=== PATIENT | male | born 1965 | race Caucasian/White ===

== ENCOUNTER 2024-08-12 15:05 | Inpatient (IN) | payer OTHER ==
[~2024-08-12] VITALS: Ht 177.8 cm; Wt 140.0 kg
--- NOTE | 2024-08-12 15:26 | ED.PDOC ---
History of Present Illness HPI Comments 58-year-old male brought in by EMS presents with a chief complaint of generalized weakness, nausea, vomiting, irregular heart rate and slurred speech with mild altered mental status. Per EMS, patient was driving to [place] for medical evaluation from multiple providers when he had a sudden onset of generalized weakness, became nauseated, and had one emesis episode. Patient was found to be in A-Fib RVR and takes Xarelto normally for it, but has not been non-compliant with his medications recently. Patient states additionally that his pacemaker has now function in his only operating on one side. Patient was supposed to have that pacemaker replaced next week. Patient was given 4mg Zofr an and 500mL of NS. Patient is alert and oriented, but states that he feels weak and continues to displays signs of slurred speech. No other symptoms or modifying factors present at this time. Chief Complaint: Dizziness Time Seen by MD: 15:18 Reviewed Notes: Nurses Notes, Chemical Lab Supervisor Notes, Medications, Allergies Allergies: Coded Allergies: Penicillins (Verified Allergy, Unknown, 08/12/24) Information Source: Patient, Emergency Med Personnel Mode of Arrival: EMS Severity: Moderate Timing: Hours Duration: Since onset Prehospital treatment: IVF (500mL ), Treatment (4mg Zofran) Past Medical History PAST MEDICAL HISTORY: AFIB Surgical History: Pacemaker Family History Family History: Reviewed,noncontributory to illness Social History Smoker: Non-Smoker Alcohol: Denies ETOH Use Drugs: Denies Drug Use Lives In: Home Constitutional: reports: weakness; denies: chills, diaphoresis, fatigue, fever, malaise, sweats, others EENTM: denies: blurred vision, double vision, ear bleeding, ear discharge, ear drainage, ear pain, ear ringing, eye pain, eye redness, hearing loss, mouth pain, mouth swelling, nasal discharge, nose bleeding, nose congestion, nose pain, photophobia, tearing, throat pain, throat swelling, voice changes, others Respiratory: denies: cough, hemoptysis, orthopnea, SOB at rest, shortness of breath, SOB with excertion, stridor, wheezing, others Cardiovascular: reports: irregular heart beat; denies: chest pain, dizzy spells, diaphoresis, Dyspnea on exertion, edema, left arm pain, lightheadedness, palpitations, PND, syncope, others Gastrointestinal: reports: nausea, vomiting; denies: abdomen distended, abdominal pain, blood streaked bowels, constipated, diarrhea, dysphagia, difficulty swallowing, hematemesis, melena, poor appetite, poor fluid intake, rectal bleeding, rectal pain, others Genitourinary: denies: burning, dysuria, flank pain, frequency, hematuria, incontinence, penile discharge, penile sore, pain, testicle pain, testicle swelling, urgency, others Neurological: reports: speech problems; denies: dizziness, fainting, headache, left sided numbness, left sided weakness, numbness, paresthesia, pre-existing deficit, right sided numbness, right sided weakness, seizure, tingling, tremors, weakness, others Musculoskeletal: denies: back pain, gout, joint pain, joint swelling, muscle pain, muscle stiffness, neck pain, others Integumetry: denies: bruises, change in color, change in hair/nails, dryness, laceration, lesions, lumps, rash, wounds, others Allergic/Immunocompromised: denies: Difficulty Healing, Frequent Infections, Hives, Itching, others Hematologic/Lymphatic: denies: anemia, blood clots, easy bleeding, easy bruising, swollen glands, others Endocrine: denies: excessive hunger, excessive sweating, excessive thirst, excessive urination, flushing, intolerance to cold, intolerance to heat, unexplained weight gain, unexplained weight loss, others Psychiatric: denies: anxiety, bipolar disorder, depression, hopeless, panic disorder, schizophrenia, sleepless, suicidal, others All Other Systems: Reviewed and Negative Physical Exam Exam Comments Patient was BEFAST negative at time of evaluation. General Appearance: Moderate Distress, Obese HEENT: Head (Cranial exam was unremarkable. No signs of trauma. No skull depressions or deformities.), Normal ENT Inspection, Pharynx Normal, TMs Normal Neck: Full Range of Motion, Non-Tender, Normal, Normal Inspection Respiratory: Chest Non-Tender, Lungs Clear, No Accessory Muscle Use, No Respiratory Distress, Normal Breath Sounds Cardiovascular: No Edema, No JVD, No Murmur, No Gallop, Normal Peripheral Pulses, Tachycardia, Other (A-Fib RVR) Breast Exam: Deferred Gastrointestinal: No Organomegaly, Non Tender, No Pulsatile Mass, Normal Bowel Sounds, Soft Genitalia: Deferred Pelvic: Deferred Rectal: Deferred Extremities: No calf tenderness, Normal capillary refill, Normal inspection, Normal range of motion, Non-tender, No pedal edema Musculoskeletal : Apperance: Normal Neurologic: Alert, No Motor Deficits, Normal Affect, No Sensory Deficits, Other (LETHARGIC) Cerebellar Function: Normal Reflexes: Normal Skin: Dry, Normal Color, Warm Lymphatic: No Adenopathy Was a procedure done? Was a procedure done?: No Differential Dx Considerations may include: Acute coronary syndrome, AFib with RVR, encephalopathy, sepsis, electrolyte abnormality X-Ray, Labs, Meds, VS Vital Signs Date Time Temp Pulse Resp B/P (MAP) Pulse Ox O2 Delivery O2 Flow Rate FiO2 08/12/24 22:52 123 08/12/24 20:00 98.3 123 14 101/50 (67) 96 98.3 08/12/24 19:30 122 26 96 Room Air* 0 21 08/12/24 19:04 116 119/58 08/12/24 19:00 116 14 119/58 (78) 96 08/12/24 18:20 122 22 122/69 (86) 96 08/12/24 18:04 133 125/66 08/12/24 18:00 133 26 96 Room Air* 0 21 08/12/24 17:50 98.4 133 26 125/66 (85) 96 98.4 08/12/24 15:33 131 08/12/24 15:19 97.6 130 18 119/82 (94) 97 Lab Test 08/12/24 20:00 08/12/24 18:28 08/12/24 16:32 08/12/24 15:37 Range/Units Urine Color Yellow Yellow Urine Clarity Clear Clear Urine pH 6.0 5.0-9.0 Urine Specific [place] 1.028 1.001-1.035 Urine Protein Trace H Negative Urine Ketones Trace Negative Urine Blood Negative Negative /uL Urine Nitrite Negative Negative Urine Bilirubin Negative Negative Urine Urobilinogen 2 H Negative mg/dL Urine Leukocyte Esterase Negative Negative /uL Urine RBC 9 0 - 3 /hpf Urine Microscopic WBC 1 0-3 /HPF Urine Squamous Epithelial Cells None seen <5 /hpf Urine Bacteria None seen None Seen /hpf Urine Mucus Few None Seen Urine Glucose Normal Normal mg/dL Troponin I High Sensitivity 19 18 17 </=54 ng/L White Blood Count 11.5 H 4.4-10.8 10^3/uL Red Blood Count 4.79 4.5-5.90 10^6/uL Hemoglobin 15.2 13.5-17.5 g/dL Hematocrit 46.4 41.0-53.0 % Mean Corpuscular Volume 97.0 80.0-100.0 fL Mean Corpuscular Hemoglobin 31.7 28.0-32.0 pg Mean Corpuscular Hemoglobin Concent 32.7 32.0-36.0 g/dL Red Cell Distribution Width 15.7 H 11.8-14.3 % Platelet Count 370 140-450 10^3/uL Mean Platelet Volume 8.1 6.9-10.8 fL Neutrophils (%) (Auto) 81.5 H 37.0-80.0 % Lymphocytes (%) (Auto) 8.6 L 10.0-50.0 % Monocytes (%) (Auto) 9.0 0.0-12.0 % Eosinophils (%) (Auto) 0.3 0.0-7.0 % Basophils (%) (Auto) 0.6 0.0-2.0 % Neutrophils # (Auto) 9.4 H 1.6-8.6 10 ^3/uL Lymphocytes # (Auto) 1.0 0.4-5.4 10 ^3/uL Monocytes # (Auto) 1.0 0-1.3 10 ^3/uL Eosinophils # (Auto) 0 0-0.8 10 ^3/uL Basophils # (Auto) 0.1 0-0.2 10 ^3/uL Nucleated Red Blood Cells 0.1 % Prothrombin Time 11.2 9.3-11.8 sec Prothrombin Time INR 1.06 0.9-1.15 Activated Partial Thromboplast Time 25.9 24.5-34.5 SEC D-Dimer, Quantitative 0.49 0.0-0.49 mg/L FEU Sodium Level 135 L 136-145 mmol/L Potassium Level 3.9 3.5-5.1 mmol/L Chloride Level 97 L 98-107 mmol/L Carbon Dioxide Level 28 20-31 mmol/L Anion Gap 10 5-15 Blood Urea Nitrogen 18 9-23 mg/dL Creatinine 1.02 0.700-1.30 mg/dL Glomerular Filtration Rate Calc 84 >90 mL/min BUN/Creatinine Ratio 17.6 10.0-20.0 Serum Glucose 157 H 74-106 mg/dL Calcium Level 9.2 8.7-10.4 mg/dL Magnesium Level 2.1 1.6-2.6 mg/dL Total Bilirubin 1.4 H 0.2-1.0 mg/dL Aspartate Amino Transferase (AST) 27 13-40 U/L Alanine Aminotransferase (ALT) 40 7-40 U/L Alkaline Phosphatase 67 46-116 U/L B-Type Natriuretic Peptide 396.26 0-100 pg/mL Total Protein 6.7 5.7-8.2 g/dL Albumin 4.3 3.2-4.8 g/dL Current Medications Medications (Trade) Dose Ordered Sig/Jaspal Route Start Time Stop Time Status Last Admin Metoprolol Tartrate (Lopressor) 5 mg ONCE ONCE IV 08/12/24 15:45 08/12/24 15:46 DC 08/12/24 18:04 X-Ray, Labs, Meds, VS Comment All studies performed the ED were evaluated by me personally. Serum laboratories revealed a mild CHF exacerbation. No sepsis appreciated. Imaging studies confirmed a cardiomegaly with some pulmonary congestion noted. Patient's EKGs continued to display atrial fibrillation with a rate of one 31- 123. Multiple ventricular premature complexes noted with incomplete left bundle-branch block and borderline prolonged QT interval. Discussed the patient's concerns with Cardiology mid-level Renu. She advised utilizing metoprolol and admitting for cardiac consultation tomorrow. Patient will be admitted for cardiac evaluation in the morning as well as neuro evaluation to assess his improving speech concerns. Patient's cardiac score is six. Time of 1ST Reevaluation: 23:06 Reevaluation 1ST: Improved Consultation: PCP, Cardiology, Neurology Patient Education/Counseling: Diagnosis, Treatment, Prognosis Family Education/Counseling: Diagnosis, Treatment, Prognosis Departure 1 Departure Time of Disposition: 23:10 Impression: Primary Impression: Atrial fibrillation with RVR Additional Impression: Encephalopathy Disposition: 09 ADMITTED INPATIENT Condition: Stable Discharged With: Self Critical Care Note Critical Care Time?: No Stability Stability form required: No I personally scribed for YVETTE LEMOS PAC ([email or web address]) on 08/12/24 at 15:26. Electronically submitted by Cisco Gerard ([email or web address]). YVETTE LEMOS PAC Aug 12, 2024 15:26
--- NOTE | 2024-08-12 15:35 | ECG ---
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
--- NOTE | 2024-08-12 16:00 | DVH ---
EXAM: XR Chest, 1 View CLINICAL INDICATION: Shortness of breath TECHNIQUE: Frontal view of the chest. COMPARISON: None FINDINGS: LUNGS AND PLEURAL SPACES: See below. HEART: Cardiomegaly with mild congestion. MEDIASTINUM: Unremarkable. Normal mediastinal contour. BONES/JOINTS: Unremarkable. No acute fracture. TUBES, LINES AND DEVICES: Left-sided cardiac pacemaker. OTHER FINDINGS: . .. IMPRESSION: Cardiomegaly with mild congestion.
--- NOTE | 2024-08-12 16:15 | DVH ---
EXAM: CT Head Without Intravenous Contrast CLINICAL INDICATION: Altered mental status TECHNIQUE: Axial computed tomography images of the head/brain without intravenous contrast. This CT exam was performed using one or more of the following dose reduction techniques: automated exposure control, adjustment of the mA and/or kV according to patient size, and/or use of iterative reconstru ction technique. CONTRAST: RADIATION DOSE: CTDIvol = 62.79 mGy, DLP = 1111.61 mGy-cm COMPARISON: None FINDINGS: BRAIN AND EXTRA-AXIAL SPACES: No acute intracranial hemorrhage, midline shift or mass effect. If sy mptoms persist, further evaluation with MRI is recommended. The cerebral and cerebellar sulci are mi ldly prominent consistent with mild brain atrophy. Mild areas of decreased attenuation in the deep c erebral white matter are consistent with mild small vessel ischemic/degenerative changes. BONES/JOINTS: Unremarkable. No acute fracture. SOFT TISSUES: Unremarkable. SINUSES: Unremarkable as visualized. No acute sinusitis. MASTOID AIR CELLS: Unremarkable as visualized. No mastoid effusion. OTHER FINDINGS: . ESSION: 1. No acute intracranial hemorrhage, midline shift or mass effect. If symptoms persist, further eval uation with MRI is recommended. 2. Mild small vessel ischemic/degenerative changes.
[2024-08-12 16:20] LABS: Basophils # (auto) 0.1 10 ^3/uL (0-0.2); Basophils % (auto) 0.6 % (0.0-2.0); Eosinophils # (auto) 0 10 ^3/uL (0-0.8); Eosinophils % (auto) 0.3 % (0.0-7.0); Hematocrit 46.4 % (41.0-53.0); Hemoglobin 15.2 g/dL (13.5-17.5); Lymphocytes % (auto) 8.6 % (10.0-50.0); Mean Corpuscular Hemoglobin 31.7 pg (28.0-32.0); Mean Corpuscular Hgb Conc. 32.7 g/dL (32.0-36.0); Neutrophils # (auto) 9.4 10 ^3/uL (1.6-8.6); Neutrophils % (auto) 81.5 % (37.0-80.0); Nucleated Red Blood Cells % 0.1 %; Platelet Count (auto) 370 10^3/uL (140-450); Red Blood Cells 4.79 10^6/uL (4.5-5.90); Red Cell Distribution Width 15.7 % (11.8-14.3); White Blood Cell 11.5 10^3/uL (4.4-10.8)
[2024-08-12 16:35] LABS: Albumin 4.3 g/dL (3.2-4.8); Alkaline Phosphatase 67 U/L (46-116); Anion Gap 10 (5-15); Aspartate Aminotransferase 27 U/L (13-40); BUN/Creatinine Ratio 17.6 (10.0-20.0); Blood Urea Nitrogen 18 mg/dL (9-23); Calcium 9.2 mg/dL (8.7-10.4); Carbon Dioxide 28 mmol/L (20-31); Magnesium 2.1 mg/dL (1.6-2.6); Potassium 3.9 mmol/L (3.5-5.1)
[2024-08-12 16:36] LABS: Total Protein 6.7 g/dL (5.7-8.2)
[2024-08-12 16:38] LABS: INR 1.06 (0.9-1.15); Partial Thromboplastin Time 25.9 SEC (24.5-34.5); Prothrombin Time 11.2 sec (9.3-11.8)
[2024-08-12 16:42] LABS: Alanine Aminotransferase 40 U/L (7-40); Bilirubin, Total 1.4 mg/dL (0.2-1.0); Chloride 97 mmol/L (98-107); Glucose 157 mg/dL (74-106); Sodium 135 mmol/L (136-145)
[2024-08-12 18:00] VITALS: PULSE 133; RESP 26; O2SAT 96
[2024-08-12] MEDS: METOPROLOL TARTRATE 1MG/1ML-5ML VIAL IV ONE (18:04)
[2024-08-12 19:30] VITALS: PULSE 122; RESP 26; O2SAT 96
[2024-08-12 20:26] LABS: Urine Bacteria None Seen /hpf (None Seen)
[2024-08-12 20:38] LABS: Urine Blood Negative /uL (Negative); Urine Clarity Clear (Clear); Urine Color Yellow (Yellow); Urine Mucus FEW (None Seen); Urine Protein, UAD TRACE (Negative); Urine Specific Gravity 1.028 (1.001-1.035); Urine Squamous Epithelial Cell None Seen /hpf (<5); Urine Urobilinogen 2 mg/dL (Negative); Urine WBC 1 /HPF (0-3)
[2024-08-12] MEDS: LORazepam 2MG/ML-1ML VIAL IV ONE (23:22)
[2024-08-13] MEDS ORDERED: ENOXAPARIN SOD 80 MG/0.8ML SYRINGE SC SCH (01:15)
[2024-08-13] MEDS: SODIUM CHLORIDE 0.9% 1,000 ML IV ONE (01:30)
[2024-08-13] MEDS ORDERED: VANCOMYCIN PER PHARMACY 0 MG IV SCH (02:00)
[2024-08-13] MEDS ORDERED: VANCOMYCIN 1GM/250ML KIT 250 ML IV SCH (02:30)
[2024-08-13 02:47] LABS: Erythrocyte Sedimentation Rate 19 mm/hr (0-20)
[2024-08-13 02:57] LABS: COVID19 ANTIGEN SOFIA FIA NEGATIVE (NEGATIVE); Rapid Influenza A Negative (Negative); Rapid Influenza B Negative (Negative)
[2024-08-13 03:07] LABS: Cannabinoid Screen, Urine Pos (NEGATIVE)
[2024-08-13 03:09] LABS: Amphetamine Screen, Urine Pos (NEGATIVE); Barbiturate Scree,Urine Neg (NEGATIVE); Benzodiazephine Screen, Urine Neg (NEGATIVE); Cocaine Screen, Urine Neg (NEGATIVE); Opiate Scree,Urine Neg (NEGATIVE); Phencyclidine Screen, Urine Neg (NEGATIVE)
--- NOTE | 2024-08-13 04:30 | DVHHPRES ---
History of Present Illness Resident Creating Document: LAYLA HERNANDEZ RESIDENT Reason for Visit: Afib with RVR History of Present Illness A 58y old male with PMHx HFrEF, atrial fibrillation and previous stroke who came to the ED brought by the EMS, patient was driving to [place] when he started to feel weak and started to have slurred speech. Patient stated that the slurred speech happened at 5 pm, right now patient doesn't have slurred sppech or stated any neurogical deficit. Pt also stated feeling nauseas and have an episode of vomiting. Pt stated that he has an ICD and need to be changed, he denies any shocks. He also stated that he is having afib for more than a year and he is not taking his blood thinner Xarelto PMHx: HFrEF sp ICD , atrial fibrillation and previous stroke Home meds: Xarelto 20 mg tramadol diltiazem metolazone Entresto 50 carvedilol 6.25 losartan spironolactone furosemide 40 pantoprazole UDS came positive for amphetamines Review of Systems Constitutional: Yes: Malaise; No: Fever, Chills, Sweats, Weakness, Other Eyes: No: Pain, Vision change, Conjunctivae inflammation, Eyelid inflammation, Other, Redness ENT: No: Ear pain, Ear discharge, Nose pain, Nose discharge, Nose congestion, Mouth pain, Mouth swelling, Throat pain, Throat swelling, Other Respiratory: No: Cough, Dry, Shortness of breath, SOB with excertion, Wheezing, Hemoptysis, Pleuritic Pain, Sputum, Wheezing, Other Cardiovascular: No: Chest Pain, Palpitations, Orthopnea, Paroxysmal Noc. Dyspnea, Edema, Lt Headedness, Other Gastrointestinal: No: Nausea, Vomiting, Abdominal Pain, Diarrhea, Constipation, Melena, Hematochezia, Other Genitourinary: No Dysuria, No Frequency, No Incontinence, No Hematuria, No Retention, No Other Musculoskeletal: No: other, neck pain, shoulder pain, arm pain, back pain, hand pain, leg pain, foot pain Skin: No: Rash, Lesions, Jaundice, Bruising, Other Neurological: Weakness; No: Numbness, Incoordination, Change in speech, Confusion, Seizures, Other Allergies: Coded Allergies: Penicillins (Verified Allergy, Unknown, 08/12/24) Medications Current Medications Medications Dose Ordered Sig/Jaspal Route Start Time Stop Time Status Last Admin Dose Admin Enoxaparin Sodium 80 mg BID SC 08/13/24 01:15 UNV Ceftriaxone Sodium 50 ml @ 100 mls/hr DAILY IV 08/13/24 10:00 Vancomycin HCl 0 ml @ 0 mls/hr UD IV 08/13/24 02:00 UNV Vancomycin HCl 250 ml @ 125 mls/hr Q2H IV 08/13/24 05:00 08/13/24 08:59 Exam Vital Signs Vital Signs Date Time Temp Pulse Resp B/P (MAP) Pulse Ox O2 Delivery O2 Flow Rate FiO2 08/13/24 00:00 97.8 125 21 99/72 (81) 92 97.8 08/12/24 19:30 Room Air* 0 21 General Appearance: Alert, Oriented X3 HEENT: Other (pupils are miotic but reactive ) Respiratory: Clear to auscultation Cardiovascular: Other (tachycardic ) Abdominal: Normal bowel sounds, Soft Extremities: No clubbing, No cyanosis Skin: No rashes, No breakdown Neuro: Normal gait, Normal speech, Strength at 5/5 X4 ext, Normal tone, Sensation intact, Cranial nerves 3-12 NL, Reflexes 2+ Psych/Mental Status: Mental status NL, Mood NL, Other Labs/Xrays Labs Test 08/13/24 01:28 08/13/24 01:23 08/12/24 20:00 08/12/24 18:28 Range/Units Erythrocyte Sedimentation Rate 19 0-20 mm/hr C-Reactive Protein High Sensitivity 5.64 H <1.0 mg/dL Thyroid Stimulating Hormone (TSH) 1.91 0.55-4.78 uIU/mL Influenza Type A Antigen Negative Negative Influenza Type B Antigen Negative Negative SARS-CoV-2 Antigen (Rapid) Negative NEGATIVE Urine Color Yellow Yellow Urine Clarity Clear Clear Urine pH 6.0 5.0-9.0 Urine Specific [place] 1.028 1.001-1.035 Urine Protein Trace H Negative Urine Ketones Trace Negative Urine Blood Negative Negative /uL Urine Nitrite Negative Negative Urine Bilirubin Negative Negative Urine Urobilinogen 2 H Negative mg/dL Urine Leukocyte Esterase Negative Negative /uL Urine RBC 9 0 - 3 /hpf Urine Microscopic WBC 1 0-3 /HPF Urine Squamous Epithelial Cells None seen <5 /hpf Urine Bacteria None seen None Seen /hpf Urine Mucus Few None Seen Urine Glucose Normal Normal mg/dL Urine Opiates Screen Neg NEGATIVE Urine Fentanyl Screen Neg NEGATIVE Urine Barbiturates Screen Neg NEGATIVE Urine Phencyclidine Screen Neg NEGATIVE Urine Amphetamines Screen Pos NEGATIVE Urine Benzodiazepines Screen Neg NEGATIVE Urine Cocaine Screen Neg NEGATIVE Urine Cannabinoids Screen Pos NEGATIVE Troponin I High Sensitivity 19 </=54 ng/L Test 08/12/24 15:37 Range/Units White Blood Count 11.5 H 4.4-10.8 10^3/uL Red Blood Count 4.79 4.5-5.90 10^6/uL Hemoglobin 15.2 13.5-17.5 g/dL Hematocrit 46.4 41.0-53.0 % Mean Corpuscular Volume 97.0 80.0-100.0 fL Mean Corpuscular Hemoglobin 31.7 28.0-32.0 pg Mean Corpuscular Hemoglobin Concent 32.7 32.0-36.0 g/dL Red Cell Distribution Width 15.7 H 11.8-14.3 % Platelet Count 370 140-450 10^3/uL Mean Platelet Volume 8.1 6.9-10.8 fL Neutrophils (%) (Auto) 81.5 H 37.0-80.0 % Lymphocytes (%) (Auto) 8.6 L 10.0-50.0 % Monocytes (%) (Auto) 9.0 0.0-12.0 % Eosinophils (%) (Auto) 0.3 0.0-7.0 % Basophils (%) (Auto) 0.6 0.0-2.0 % Neutrophils # (Auto) 9.4 H 1.6-8.6 10 ^3/uL Lymphocytes # (Auto) 1.0 0.4-5.4 10 ^3/uL Monocytes # (Auto) 1.0 0-1.3 10 ^3/uL Eosinophils # (Auto) 0 0-0.8 10 ^3/uL Basophils # (Auto) 0.1 0-0.2 10 ^3/uL Nucleated Red Blood Cells 0.1 % Prothrombin Time 11.2 9.3-11.8 sec Prothrombin Time INR 1.06 0.9-1.15 Activated Partial Thromboplast Time 25.9 24.5-34.5 SEC D-Dimer, Quantitative 0.49 0.0-0.49 mg/L FEU Sodium Level 135 L 136-145 mmol/L Potassium Level 3.9 3.5-5.1 mmol/L Chloride Level 97 L 98-107 mmol/L Carbon Dioxide Level 28 20-31 mmol/L Anion Gap 10 5-15 Blood Urea Nitrogen 18 9-23 mg/dL Creatinine 1.02 0.700-1.30 mg/dL Glomerular Filtration Rate Calc 84 >90 mL/min BUN/Creatinine Ratio 17.6 10.0-20.0 Serum Glucose 157 H 74-106 mg/dL Calcium Level 9.2 8.7-10.4 mg/dL Magnesium Level 2.1 1.6-2.6 mg/dL Total Bilirubin 1.4 H 0.2-1.0 mg/dL Aspartate Amino Transferase (AST) 27 13-40 U/L Alanine Aminotransferase (ALT) 40 7-40 U/L Alkaline Phosphatase 67 46-116 U/L B-Type Natriuretic Peptide 396.26 0-100 pg/mL Total Protein 6.7 5.7-8.2 g/dL Albumin 4.3 3.2-4.8 g/dL Assessment/Plan Assessment/Plan #Sepsis? vs early cardiogenic shock #Hypotension MAP >65 mmHg #Acute on chronic HF (Possible reduced EF) #Chronic atrial fibrillation now RVR - Persistent? #TIA? #Rule out stroke #Amphetamine use #CBD use EKG showed HR 131 atrial fibrillation but now HR 115 BPs are in the 90/60[address] CT scan: 1. No acute intracranial hemorrhage, midline shift or mass effect. 2. Mild small vessel ischemic/degenerative changes. NIHSS score 2 points xray: pulmonary congestion and cardiomegaly Admit Telemetry NS 1LT bolus Hold on BB due to possible sepsis vs early cardiogenic shock Start ceftriaxone + vancomycin (CRP elevated) Pancultures ordered UDS came positive for amphetamines and CBD Enoxaparin 80 mg BID Neurology and cardiology consult ordered ICD interrogation Hold on GDMT due to hypotension ECHO ordered MRI ordered to rule out stroke Start aspirin and atorvastatin due to the possibility of stroke and previous stroke Case discussed with Dr Riddle Time spent on care 23 min Plan discussed with: Patient, Other (rn) My Orders Orders - LAYLA HERNANDEZ RESIDENT Procedure Category Date Status Time Admit ADMIT 08/13/24 Transmitted 00:57 Brain Head Wo Contrast MRI 08/13/24 Logged 00:57 Blood Culture STEFANY 08/13/24 In Process 00:57 Echo 2d Mode Cardiac US 08/13/24 Logged DOP 01:04 * Cardiology Consult CONS 08/13/24 Transmitted 01:04 Enoxaparin Sodium PHA 08/13/24 Pending (Lovenox) 01:15 Ceftriaxone 1gm/50ml PHA 08/13/24 In Process D5w (Rocephin) 10:00 Vancomycin Per PHA 08/13/24 Pending Pharmacy 02:00 Urine Bacterial STEFANY 08/13/24 In Process Culture 01:46 Stool Occult Blood LAB 08/13/24 Logged 01:46 Stool Bacterial STEFANY 08/13/24 Logged Culture 01:46 Stool Wbc LAB 08/13/24 Logged 01:46 Respiratory Culture STEFANY 08/13/24 Logged W/ Gs 01:46 Docket Specialist To Assess ORDERS 08/13/24 Transmitted Pacemaker 01:48 Vancomycin 1gm/250ml PHA 08/13/24 In Process Kit 05:00 Date of Service: Aug 13, 2024 Billing Provider: JAMES RIDDLE MD Common Visit Codes: [id number] INP/OBS CARE (HIGH) LAYLA HERNANDEZ RESIDENT Aug 13, 2024 04:30 JAMES RIDDLE MD Aug 15, 2024 10:13
[2024-08-13 05:00] VITALS: BP 130/48; PULSE 125; RESP 19; TEMP 97.8; O2SAT 92
[2024-08-13] MEDS ORDERED: METF-370 PO (05:06)
[2024-08-13] MEDS ORDERED: RIVA20TA PO (05:06)
[2024-08-13] MEDS ORDERED: CARV6.2551 PO (05:06)
[2024-08-13] MEDS ORDERED: SPIR25TA8 PO (05:07)
[2024-08-13] MEDS ORDERED: LOSA-533 PO (05:07)
[2024-08-13] MEDS ORDERED: FURO1TAB31 PO (05:07)
[2024-08-13 05:08] VITALS: O2SAT 97
[2024-08-13] MEDS ORDERED: METO25TA5 PO (05:08)
[2024-08-13] MEDS: cefTRIAXone 1GM/50ML D5W 50 ML IV SCH (05:27)
[2024-08-13] MEDS: ASPirin 81 mg TAB PO SCH (05:28)
[2024-08-13] MEDS: VANCOMYCIN 1GM/250ML KIT 250 ML IV SCH (05:28)
[2024-08-13] MEDS: ATORVASTATIN 20 MG TAB PO SCH (05:28)
[2024-08-13 08:00] VITALS: PULSE 115; RESP 18; O2SAT 93
[2024-08-13 09:00] VITALS: BP 102/72; PULSE 59; RESP 18; TEMP 97.7; O2SAT 93
--- NOTE | 2024-08-13 09:45 | DVHINCON2 ---
ROSE MARY RILEY AGACNP 08/13/24 0945: Date Seen: Aug 13, 2024 Referring Physician Aniceto Reason for Consultation CHF, A fib RVR History of Present Illness 58-year-old male with PMH for HTN, HLD, atrial fibrillation on Xarelto, CHF, presence of implantable defibrillator, presents to the hospital with dizziness and slurred speech. 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 Upon evaluation in the ER patient noted to be in AFib with RVR. Patient endorses noncompliance with Xarelto for approximately 1-[address] head showed no acute pathology with mild ischemic/degenerative changes. Troponins trending negative x3. TSH normal. BNP 396. UDS found to be positive for amphetamines and cannabinoids, patient denies any recent use of amphetamines though does endorse marijuana use recently. EKG reviewed and shows atrial fibrillation with rapid ventricular response at 131 beats per minute, IRBBB. Past Medical History CHF Atrial Fibrillation HTN HLD AICD Past Surgical History AICD Family History Denies pertinent family cardiac history Allergies: Coded Allergies: Penicillins (Verified Allergy, Unknown, 08/12/24) Home Meds Reported Medications Metoprolol Tartrate (Metoprolol Tartrate) 25 Mg Tab, 50 MG PO, TAB 08/13/24 Losartan Potassium (Losartan Potassium) 25 Mg Tab, 1 TAB PO DAILY, #90 TAB 1 Refill 08/13/24 Spironolactone (Spironolactone) 25 Mg Tab, 1 TAB PO DAILY, #90 TAB 1 Refill 08/13/24 Furosemide (Lasix) 40 Mg Tab, 40 MG PO, TAB 08/13/24 Metformin Hydrochloride (Metformin Hcl) 500 Mg Tab, 1 TAB PO BID, #60 TAB 3 Refills 08/13/24 Carvedilol (Carvedilol) 6.25 Mg Tab, 1 TAB PO BID, #180 TAB 1 Refill 08/13/24 Rivaroxaban (XARELTO) 20 Mg Tab, 1 TAB PO DAILY, #30 TAB 11 Refills 08/13/24 Current Medications Current Medications Medications (Trade) Dose Ordered Sig/Jaspal Route PRN Reason Start Time Stop Time Status Last Admin Enoxaparin Sodium (Lovenox) 80 mg BID SC 08/13/24 01:15 UNV Ceftriaxone Sodium 50 ml @ 100 mls/hr DAILY IV 08/13/24 10:00 08/13/24 04:43 DC Vancomycin HCl 0 ml @ 0 mls/hr UD IV 08/13/24 02:00 UNV Vancomycin HCl 250 ml @ 125 mls/hr Q2H IV 08/13/24 02:30 08/13/24 04:04 DC Vancomycin HCl 250 ml @ 125 mls/hr Q2H IV 08/13/24 05:00 08/13/24 08:59 DC 08/13/24 08:42 Ceftriaxone Sodium 50 ml @ 100 mls/hr DAILY IV 08/13/24 04:45 08/13/24 08:43 Aspirin 81 mg DAILY PO 08/13/24 04:45 08/13/24 08:42 Atorvastatin Calcium (Lipitor) 80 mg HS PO 08/13/24 04:45 08/13/24 05:28 Enoxaparin Sodium (Lovenox) 80 mg DAILY SC 08/13/24 10:00 UNV Furosemide (Lasix Injection) 20 mg DAILY IV 08/13/24 10:00 UNV Metoprolol Tartrate (Lopressor Tablet) 25 mg BID PO 08/13/24 10:00 UNV Review of Systems Constitutional: No: Fever, Chills, Sweats, Weakness, Malaise, Other Eyes: No: Pain, Vision change, Conjunctivae inflammation, Eyelid inflammation, Other, Redness ENT: No: Ear pain, Ear discharge, Nose pain, Nose discharge, Nose congestion, Mouth pain, Mouth swelling, Throat pain, Throat swelling, Other Respiratory: No: Cough, Dry, Shortness of breath, SOB with exertion, Wheezing, Hemoptysis, Pleuritic Pain, Sputum, Wheezing, Other Cardiovascular: ; No: Chest Pain Palpitations, Orthopnea, Paroxysmal Noc. Dyspnea, , Lt Headedness, Other positive: Edema Gastrointestinal: No: Nausea, Vomiting, Abdominal Pain, Diarrhea, Constipation, Melena, Hematochezia, Other Genitourinary: No Dysuria, No Frequency, No Incontinence, No Hematuria, No Retention, No Other Musculoskeletal: neck pain; No: other, shoulder pain, arm pain, back pain, hand pain, leg pain, foot pain Skin: No: Rash, Lesions, Jaundice, Bruising, Other Neurological: Other (, headache.); No: Weakness, Numbness, Incoordination, , Confusion, Seizures positive: Change in speech, Dizziness Vital Signs Vital Signs Date Time Temp Pulse Resp B/P (MAP) Pulse Ox O2 Delivery O2 Flow Rate FiO2 08/13/24 05:08 97 Room Air* 0 21 08/13/24 05:00 97.8 125 19 130/48 (75) 97.8 Physical Exam General appearance: Patient is well-developed, well-nourished, in no acute distress. HEENT: Exam shows: Normocephalic, atraumatic, PERRLA, EOMI Neck: Supple, no bruits Chest: Equal chest excursion bilaterally. Breath sounds normal-no rales or w heezes. Heart: Rhythm: Irregular rate; no murmur or gallop Abdomen: Exam shows: Soft, nontender, nondistended Musculoskeletal: No clubbing, no cyanosis, + lower extremity edema Dermatology: Skin warm, moist. BLE reddness Neurological: Exam shows: Alert and oriented x4, abnormal speech Available prior records, labs, EKG, rhythm strips reviewed and interpreted Labs/Diagnostic Data Labs Test 08/13/24 01:28 08/13/24 01:23 08/12/24 20:00 08/12/24 18:28 Range/Units Erythrocyte Sedimentation Rate 19 0-20 mm/hr C-Reactive Protein High Sensitivity 5.64 H <1.0 mg/dL Thyroid Stimulating Hormone (TSH) 1.91 0.55-4.78 uIU/mL Influenza Type A Antigen Negative Negative Influenza Type B Antigen Negative Negative SARS-CoV-2 Antigen (Rapid) Negative NEGATIVE Urine Color Yellow Yellow Urine Clarity Clear Clear Urine pH 6.0 5.0-9.0 Urine Specific Dawson 1.028 1.001-1.035 Urine Protein Trace H Negative Urine Ketones Trace Negative Urine Blood Negative Negative /uL Urine Nitrite Negative Negative Urine Bilirubin Negative Negative Urine Urobilinogen 2 H Negative mg/dL Urine Leukocyte Esterase Negative Negative /uL Urine RBC 9 0 - 3 /hpf Urine Microscopic WBC 1 0-3 /HPF Urine Squamous Epithelial Cells None seen <5 /hpf Urine Bacteria None seen None Seen /hpf Urine Mucus Few None Seen Urine Glucose Normal Normal mg/dL Urine Opiates Screen Neg NEGATIVE Urine Fentanyl Screen Neg NEGATIVE Urine Barbiturates Screen Neg NEGATIVE Urine Phencyclidine Screen Neg NEGATIVE Urine Amphetamines Screen Pos NEGATIVE Urine Benzodiazepines Screen Neg NEGATIVE Urine Cocaine Screen Neg NEGATIVE Urine Cannabinoids Screen Pos NEGATIVE Troponin I High Sensitivity 19 </=54 ng/L Test 08/12/24 15:37 Range/Units White Blood Count 11.5 H 4.4-10.8 10^3/uL Red Blood Count 4.79 4.5-5.90 10^6/uL Hemoglobin 15.2 13.5-17.5 g/dL Hematocrit 46.4 41.0-53.0 % Mean Corpuscular Volume 97.0 80.0-100.0 fL Mean Corpuscular Hemoglobin 31.7 28.0-32.0 pg Mean Corpuscular Hemoglobin Concent 32.7 32.0-36.0 g/dL Red Cell Distribution Width 15.7 H 11.8-14.3 % Platelet Count 370 140-450 10^3/uL Mean Platelet Volume 8.1 6.9-10.8 fL Neutrophils (%) (Auto) 81.5 H 37.0-80.0 % Lymphocytes (%) (Auto) 8.6 L 10.0-50.0 % Monocytes (%) (Auto) 9.0 0.0-12.0 % Eosinophils (%) (Auto) 0.3 0.0-7.0 % Basophils (%) (Auto) 0.6 0.0-2.0 % Neutrophils # (Auto) 9.4 H 1.6-8.6 10 ^3/uL Lymphocytes # (Auto) 1.0 0.4-5.4 10 ^3/uL Monocytes # (Auto) 1.0 0-1.3 10 ^3/uL Eosinophils # (Auto) 0 0-0.8 10 ^3/uL Basophils # (Auto) 0.1 0-0.2 10 ^3/uL Nucleated Red Blood Cells 0.1 % Prothrombin Time 11.2 9.3-11.8 sec Prothrombin Time INR 1.06 0.9-1.15 Activated Partial Thromboplast Time 25.9 24.5-34.5 SEC D-Dimer, Quantitative 0.49 0.0-0.49 mg/L FEU Sodium Level 135 L 136-145 mmol/L Potassium Level 3.9 3.5-5.1 mmol/L Chloride Level 97 L 98-107 mmol/L Carbon Dioxide Level 28 20-31 mmol/L Anion Gap 10 5-15 Blood Urea Nitrogen 18 9-23 mg/dL Creatinine 1.02 0.700-1.30 mg/dL Glomerular Filtration Rate Calc 84 >90 mL/min BUN/Creatinine Ratio 17.6 10.0-20.0 Serum Glucose 157 H 74-106 mg/dL Calcium Level 9.2 8.7-10.4 mg/dL Magnesium Level 2.1 1.6-2.6 mg/dL Total Bilirubin 1.4 H 0.2-1.0 mg/dL Aspartate Amino Transferase (AST) 27 13-40 U/L Alanine Aminotransferase (ALT) 40 7-40 U/L Alkaline Phosphatase 67 46-116 U/L B-Type Natriuretic Peptide 396.26 0-100 pg/mL Total Protein 6.7 5.7-8.2 g/dL Albumin 4.3 3.2-4.8 g/dL Assessment Suspected Stroke -CT head negative. MRI pending. Neurology consult. Atrial Fibrillation with episode of RVR - Metoprolol held in setting of hypotension, permissive htn. HR in 110's. On FD lovenox, restart on xarelto on DC. Home dose Amiodarone 200 mg po twice daily restarted Acute on Chronic HFrEF - Lasix 20 mg IV daily. Follow up ECHO. BLE edema - Follow up US and arterial duplex. Diuresis Polysubstance use - Advised against HTN - Permissive HTN HLD -Statin Presence of ICD - ([employer]) - Interrogation pending. 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 Goins Case Discussed with Dr Suazo. Follow up ECHO. Metoprolol held due to hypotension, r/o stroke. Continue amiodarone. MRI pending. Follow up neurology recs. Critical care, time spent: 41 minutes This medical document was created using an electronic medical record system with voice recognition software and computerized dictation system. Although this document has been carefully reviewed, there might still be some phonetic and ty pographical errors. Occasional wrong-word or ``sound-alike substitutions may have occurred due to the inherent limitations of voice recognition software. These areas are purely typographical due to imperfections of the software programs and do not reflect any compromise in the patient's medical care. Please read the chart carefully and recognize, using context, where these sub stitutions have occurred. Thank you for allowing me to participate in the management of this patient. The treatment plan was discussed with and agreed upon by patient/family including requesting consultants and ordering of imaging/procedures. Plan discussed with: Patient NYHA Physical activity limitations: Class2(Slight)fatigue,sob Date of Service: Aug 13, 2024 Billing Provider: ROSE MARY RILEY Cardiology Common Codes: [id number] INP/OBS CARE (High), [id number] CARE 30-74 MIN CELINA SUAZO MD 08/13/24 1350: Allergies: Coded Allergies: Penicillins (Verified Allergy, Unknown, 08/12/24) Home Meds Reported Medications Metoprolol Tartrate (Metoprolol Tartrate) 25 Mg Tab, 50 MG PO, TAB 08/13/24 Losartan Potassium (Losartan Potassium) 25 Mg Tab, 1 TAB PO DAILY, #90 TAB 1 Refill 08/13/24 Spironolactone (Spironolactone) 25 Mg Tab, 1 TAB PO DAILY, #90 TAB 1 Refill 08/13/24 Furosemide (Lasix) 40 Mg Tab, 40 MG PO, TAB 08/13/24 Metformin Hydrochloride (Metformin Hcl) 500 Mg Tab, 1 TAB PO BID, #60 TAB 3 Refills 08/13/24 Carvedilol (Carvedilol) 6.25 Mg Tab, 1 TAB PO BID, #180 TAB 1 Refill 08/13/24 Rivaroxaban (XARELTO) 20 Mg Tab, 1 TAB PO DAILY, #30 TAB 11 Refills 08/13/24 Plan/Recommendation PATIENT SEEN THIS AM AGREE WITH STATOR TESTER PLAN FORMULATED TOGETHER PT HAS ICD CHANGE OUT THURSDAY CV CLEARED FOR DC , PT HAS FU WITH HIS DOCTORS Plan discussed with: Patient Date of Service: Aug 13, 2024 Billing Provider: CELINA SUAZO MD Cardiology Common Codes: NOT BILLABLE ROSE MARY RILEY Aug 13, 2024 09:45 CELINA SUAZO MD Aug 13, 2024 13:50
[2024-08-13] MEDS ORDERED: METOPROLOL TARTRATE 25 MG TAB PO SCH (10:00)
[2024-08-13] MEDS ORDERED: cefTRIAXone 1GM/50ML D5W 50 ML IV SCH (10:00)
[2024-08-13 10:54] LABS: Basophils # (auto) 0.1 10 ^3/uL (0-0.2); Basophils % (auto) 0.6 % (0.0-2.0); Eosinophils # (auto) 0.1 10 ^3/uL (0-0.8); Eosinophils % (auto) 0.6 % (0.0-7.0); Hematocrit 43.4 % (41.0-53.0); Hemoglobin 14.3 g/dL (13.5-17.5); Lymphocytes # (auto) 1.2 10 ^3/uL (0.4-5.4); Lymphocytes % (auto) 12.1 % (10.0-50.0); Mean Corpuscular Hemoglobin 31.8 pg (28.0-32.0); Mean Corpuscular Hgb Conc. 32.9 g/dL (32.0-36.0); Mean Corpuscular Volume 96.8 fL (80.0-100.0); Monocytes # (auto) 0.9 10 ^3/uL (0-1.3); Monocytes % (auto) 8.8 % (0.0-12.0); Neutrophils # (auto) 7.7 10 ^3/uL (1.6-8.6); Neutrophils % (auto) 77.9 % (37.0-80.0); Platelet Count (auto) 347 10^3/uL (140-450); Red Blood Cells 4.48 10^6/uL (4.5-5.90); Red Cell Distribution Width 15.8 % (11.8-14.3); White Blood Cell 9.8 10^3/uL (4.4-10.8)
[2024-08-13] MEDS: FUROSEMIDE 20 MG/2 ML VIAL IV SCH (10:54)
[2024-08-13] MEDS: ENOXAPARIN SOD 150 MG/1 ML SYRINGE SC SCH (10:55)
[2024-08-13] MEDS: AMIODARONE HCL 200 MG TAB PO SCH (10:56)
[2024-08-13 11:10] LABS: Alanine Aminotransferase 34 U/L (7-40); Albumin 3.7 g/dL (3.2-4.8); Alkaline Phosphatase 57 U/L (46-116); Anion Gap 6 (5-15); Aspartate Aminotransferase 23 U/L (13-40); BUN/Creatinine Ratio 18.3 (10.0-20.0); Bilirubin, Total 1.1 mg/dL (0.2-1.0); Blood Urea Nitrogen 17 mg/dL (9-23); Carbon Dioxide 30 mmol/L (20-31); Chloride 100 mmol/L (98-107); Potassium 3.9 mmol/L (3.5-5.1); Sodium 136 mmol/L (136-145); Total Protein 5.8 g/dL (5.7-8.2)
[2024-08-13 11:15] LABS: Glucose 149 mg/dL (74-106)
--- NOTE | 2024-08-13 11:20 | DVH ---
Lower extremity venous duplex Clinical History: edema, wounds Comparison: None Findings: Duplex Doppler evaluation of the deep venous systems of bilateral lower extremity from the common fem oral veins to the popliteal veins including color Doppler and spectral/pulsed waveform analysis was p erformed. RIGHT SIDE: The common femoral vein demonstrates appropriate compressibility and waveform variability. There is compressibility/patency of the great saphenous vein at the proximal thigh. The femoral vein demonstrates appropriate compressibility and waveform variability. The popliteal vein demonstrates appropriate compressibility and waveform variability. LEFT SIDE: The common femoral vein demonstrates appropriate compressibility and waveform variability. There is compressibility/patency of the great saphenous vein at the proximal thigh. The femoral vein demonstrates appropriate compressibility and waveform variability. The popliteal vein demonstrates appropriate compressibility and waveform variability. Impression: 1. No evidence for deep vein thrombosis.
--- NOTE | 2024-08-13 11:23 | DVH ---
Bilateral Lower Extremity Arterial Duplex Clinical History: edema, wounds Comparison: None Technique: Duplex Doppler evaluation including color Doppler and spectral/pulsed waveform analysis of the lower extremity arteries was performed. Findings: RIGHT: Peak systolic velocities are as follows: [employer] WORKER 68 cm/s SFA proximal 35 cm/s SFA mid-portion 59 cm/s SFA distal 45 cm/s Popliteal 56 cm/s Posterior tibial 50 cm/s Dorsalis pedis 40 cm/s The waveforms are triphasic with diastolic flow. LEFT: Peak systolic velocities are as follows: [employer]IM[employer] N[employer] WORKER 68 cm/s SFA proximal 42 cm/s SFA mid-portion 96 cm/s SFA distal 49 cm/s Popliteal 40 cm/s Posterior tibial 30 cm/s Dorsalis pedis 88 cm/s The waveforms are triphasic with diastolic flow. IMPRESSION: 1. No hemodynamically significant stenosis based on peak systolic velocity criteria. REFERENCE VALUES, [facility] ([facility]) vascular Imaging Lab Criteria: Peak systolic velocity ranges (in cm/sec) are as follows: <150 cm/s - <20 % stenosis 150-200 cm/s - 20-49% stenosis 200-300 cm/s - 50-75% stenosis >300 cm/s -> 75% stenosis
[2024-08-13 13:00] VITALS: BP 106/82; PULSE 64; RESP 20; TEMP 97.7; O2SAT 96
[2024-08-13 13:22] VITALS: BP 130/48; PULSE 62; RESP 18; TEMP 97.7
--- NOTE | 2024-08-13 13:37 | DVHSR ---
APPROVED REPORT EXAM: Two-dimensional and M-mode echocardiogram with Doppler and color Doppler. Blood Pressure: 130/48 mmHg INDICATION rule out chf and atrial thrombus Surgery/Intervention AICD RISK FACTORS Obesity: Height: 5'10, Weight: 309 DIMENSIONS LVDd5.9 (3.8-5.7cm)LA (2D)5.7 (1.9-4.0cm)Aortic Root3.1 (2.0-3.7cm) LVDs5.4 (2.5-4.0cm)LA (MM) (1.9-4.0cm)Aortic Cusp Exc1.8 (1.5-2.0cm) EF (%) 15.0 (55-70%)Rt. Atrium5.5 (1.9-4.0cm)Asc. Aorta2.7 cm IVSd0.9 (0.7-1.1cm)RV (D)5.6 (1.8-2.4cm) PWd1.1 (0.7-1.1cm) Mitral Valve MitralMitral Stenosis E wave1.13m/sMV Mean GR.3mmHg A wavem/sMV Peak GR.81mmHg E/A ratio0.02D MVAcm2 DECEL [id number] 1/2 Timems Aortic Valve Aortic ValveAortic Stenosis V10.87m/Linda Mean GR.3mmHg V21.10m/Linda Peak GR.5mmHg LVOT Diameter2.0 (1.8-2.4cm)Doppler AVA2.48cm2 Pulmonic Valve V20.90m/s Tricuspid Valve TR Velocity2.80m/s [id number] Conclusion lvef 15% by visual estimate RV enlarged biatrial enlargement pacing lead in RV moderat to severe mitral regurg mild tricuspid regurg
[2024-08-13] MEDS ORDERED: VANCOMYCIN 1.25GM/250ML 250 ML IV SCH (21:00)
--- NOTE | 2024-08-15 11:21 | ECG ---
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
== END 2024-08-13 14:27 | disposition home or self-care (01) | DRG 871 ==
LOC: EDBD 15:05 → ER 15:05 → OVERFLOW 08-13 00:57 → TELE-WESTW 08-13 04:34
PROVIDERS: ATTEND Emergency Medicine
DX: A41.9 Sepsis, unspecified organism (principal); I50.23 Acute on chronic systolic (congestive) heart failure; R57.0 Cardiogenic shock; G93.40 Encephalopathy, unspecified; N30.00 Acute cystitis without hematuria; I11.0 Hypertensive heart disease with heart failure; Z20.822 Contact with and (suspected) exposure to COVID-19; F15.90 Other stimulant use, unspecified, uncomplicated; I48.91 Unspecified atrial fibrillation; E78.5 Hyperlipidemia, unspecified; Z79.01 Long term (current) use of anticoagulants; Z88.0 Allergy status to penicillin; Z91.148 Patient's other noncompliance with medication regimen for other reason; Z79.899 Other long term (current) drug therapy
CPT/HCPCS: 36415; 70450; 71045; 80053; 80307; 80320; 81001; 83036; 83735; 83880; 84443; 84484; 85025; 85379; 85610; 85652; 85730; 86141; 87040; 87086; 87426; 87804; 93005; 93306; 93925; 93970; 96361; 96374; 96375; G0378